=== PATIENT | female | born 1955 | race African-American/Black ===

== ENCOUNTER 2019-03-29 00:15 | Inpatient (IN) | payer OTHER ==
[~2019-03-29] VITALS: Ht 170.2 cm; Wt 115.7 kg
[2019-03-29] VITALS (57 sets, daily range): BP systolic 105–163; BP diastolic 47–80
[2019-03-29] MEDS ORDERED: NORVASC 2.5 MG2.5 M1 PO (00:56)
[2019-03-29] MEDS ORDERED: ASA81BEC PO (00:57)
[2019-03-29] MEDS ORDERED: CARVEDILOL25 MG PO (00:58)
[2019-03-29] MEDS ORDERED: LIPITOR10 MG PO (00:58)
[2019-03-29] MEDS ORDERED: CHILDREN'S ZYRT10 M1 PO (00:59)
[2019-03-29] MEDS ORDERED: CLONAZEPAM 0.50.5 M1 PO ×2 (00:59→01:00)
[2019-03-29 01:01] LABS: BE(vivo) 6.5 mmol/L (-2 to +3); HCO3 30.5 mmol/L (22.0-26.0); PCO2 41.3 mmHg (35.0-45.0); PO2 61.3 mmHg (80.0-100.0); pH 7.486 (7.360-7.450); sO2 93.1 % (92.0-98.0)
[2019-03-29] MEDS ORDERED: DEMECLOCYCLINE300 MG PO (01:01)
[2019-03-29] MEDS ORDERED: DIVALPROEX SOD500 MG PO (01:02)
[2019-03-29 01:50] LABS: HEMATOCRIT 27.6 % (37.0-47.0); HEMOGLOBIN 9.2 gm/dL (12.0-15.0); MCH 26.7 pg (26.0-34.0); MCHC 33.4 g/dL (28.0-37.0); MCV 79.8 fL (80.0-100.0); PLATELET COUNT 347 thou/uL (150-400); RBC 3.46 mil/uL (4.20-5.00); RDW 15.9 % (10.5-14.5); WBC 8.6 thou/uL (4.0-11.0)
[2019-03-29 02:07] LABS: ALBUMIN 2.7 g/dL (3.4-5.0); ANION GAP 6 mmol/L (7-16); BUN 18 mg/dL (7-18); CALCIUM 8.8 mg/dL (8.5-10.1); CHLORIDE 77 mmol/L (98-107); CO2 29 mmol/L (21-32); CREATININE 1.6 mg/dL (0.6-1.0); DIRECT BILIRUBIN 0.2 mg/dL (<0.1-0.2); GLUCOSE 148 mg/dL (74-106); POTASSIUM 4.2 mmol/L (3.5-5.1); SGOT 67 U/L (15-37); SGPT 50 U/L (30-65); TOTAL BILIRUBIN 0.7 mg/dL (<0.1-1.0); TOTAL PROTEIN 7.3 g/dL (6.4-8.2); TROPONIN-I <0.06 ng/mL (<0.06)
[2019-03-29 02:12] LABS: SODIUM 112 mmol/L (136-145)
[2019-03-29 02:17] LABS: AMP/METHAMP Negative (Negative); BARBITURATES Negative (Negative); BENZODIAZEPINES Negative (Negative); COCAINE Negative (Negative); METHADONE Negative (Negative); OPIATES Negative (Negative); PCP Negative (Negative)
[2019-03-29 02:18] LABS: URINE BILIRUBIN NEGATIVE (Negative); URINE BLOOD NEGATIVE (Negative); URINE CLARITY CLEAR; URINE COLOR YELLOW; URINE GLUCOSE-RANDOM* NEGATIVE (Negative); URINE KETONES TRACE (Negative); URINE LEUKOCYTES-REFLEX NEGATIVE (Negative); URINE NITRITE-REFLEX NEGATIVE (Negative); URINE PROTEIN (DIPSTICK) 1+ (Negative); URINE SPECIFIC GRAVITY >= 1.030 (1.005-1.035); URINE UROBILINOGEN 0.2 E.U./dl (0.2-1.0)
[2019-03-29 02:27] LABS: ABSOLUTE NEUTROPHILS 6.8 thou/uL (1.4-8.2)
[2019-03-29 02:28] LABS: LARGE PLATELETS FEW; MICROCYTES 1+; PLATELET ESTIMATE NORMAL; POIKILOCYTOSIS 1+; POLYCHROMASIA 1+
[2019-03-29 02:29] LABS: ANISOCYTOSIS 1+
[2019-03-29 02:34] LABS: BACTERIA-REFLEX 1-9 Few /HPF (None Seen); HYALINE CASTS 0-3 Few /LPF (None Seen); MUCUS 0-3 Light strn/LPF (None Seen); SQUAMOUS 0-3 Few /LPF (0-3); URIC ACID CRYSTALS 4-10 Moderate /LPF (None Seen); URINE RBC 0-2 Rare /HPF (0-2); URINE WBC-REFLEX 0-5 Rare /HPF (0-5)
[2019-03-29] MEDS ORDERED: DULCOLAX STOOL100 M1 PO (03:19)
[2019-03-29] MEDS ORDERED: HYDROCHLOROTHIA25 M2 PO (03:20)
[2019-03-29] MEDS ORDERED: HYDRALAZINE HC100 MG PO (03:20)
[2019-03-29] MEDS ORDERED: LEVEMIR FL100 UNIT/2 SUBQ (03:21)
[2019-03-29] MEDS ORDERED: LOXAPINE25 MG PO (03:22)
[2019-03-29] MEDS ORDERED: MAGNESIUM250 M1 PO ×2 (03:23)
[2019-03-29] MEDS ORDERED: METFORMIN HCL500 M3 PO (03:24)
[2019-03-29] MEDS ORDERED: NOVOLOG100 UNIT/M SUBQ (03:25)
[2019-03-29] MEDS ORDERED: OXYBUTYNIN 5 MG5 M2 PO (03:25)
--- NOTE | 2019-03-29 05:00 | NUR ---
Pt arrived ICu around 0500. She is being admit for Hyponatremia. She appears sleeping, responses to verbal commands. Denies of any pain upon arrival. NSR on monitor, BP stable. Hx of siezure in the past, padded all rail. Seizure precaution inplaced. Assessment completed. Hx obtained from pt's NH record and her mother. Care plans are initiated, continue working toward goals.
[2019-03-29 06:11] LABS: URINE CREATININE-RANDOM* 111.5 mg/dL
[2019-03-29 06:33] LABS: CALCIUM 7.9 mg/dL (8.5-10.1); CREATININE 1.3 mg/dL (0.6-1.0); MAGNESIUM 1.3 mg/dL (1.8-2.4); POTASSIUM 3.7 mmol/L (3.5-5.1)
--- NOTE | 2019-03-29 15:55 | NUR ---
CM ASSESSMENT: CASE OPENED FOR DC PLANNING. CLINICAL INFO REVIEWED. PT ADMITS WITH A/C HYPONATREMIA AND DELIRIUM. PT RESIDES IN LTC AT [facility] SINCE 10/2016. HX SCHIZOPHRENIA, SEIZURES, DM 2. DISCUSSED WITH ROLANDO IN ADMISSIONS AT FACILITY. PT IS INDEPENDENT WITH MOBILITY. CURENTLY ON O2. PT/OT/ST FOR COG EVAL PENDIING. MESSAGE LEFT FOR PT'S DTR FABIO. REQUESTED DC DIP FILLER FAX H&P TO FACILITY. ROLANDO FROM [place] INDICATES SHE IS PLANNING TO COME SEE PT 03/30/19.
--- NOTE | 2019-03-29 16:28 | NUR ---
PT RESIDES AT [facility] FAXED H/P TO FACILITY SPOKE WITH ROLANDO IN ADM SHE RECEIVED UPDATE. DP TO FOLLOW.
--- NOTE | 2019-03-29 17:09 | EKG ---
[address] [place] [address] ELECTROCARDIOGRAM REPORT Name: ERIC DUKE Room #: 243-P ADM IN M.R.#: [id number] Admission: 03/29/19 Attend Phys: Jonathan Clifford MD Discharge: Date of : 57 Report #: [id number] THIS REPORT FOR: //name// [facility] ED Test Date: 2019-03-29 Test Time: 00:22:45 Pat Name: ERIC DUKE Department: Room: 243 Gender: F Occupational Therapist Assistants: DARIANA : [id number] Requested By: Garry Cheung Order Number: [id number] MD: Maicol Guevara Measurements Intervals [place] Rate: 96 P: -14 VT: 169 QRS: -26 QRSD: 79 T: 44 QT: 335 QTc: 424 Interpretive Statements Sinus rhythm Consider left atrial enlargement Inferior infarct, old Anterior infarct, old No previous ECG available for comparison Electronically Signed On 03-29-2019 17:08:23 UTILITY SPECIALIST by Maicol Guevara [email or web address] <ELECTRONICALLY SIGNED> By: Maicol Guevara MD, [facility] 03/29/19 1708 D: 01/21 Maicol Guevara MD, FACC /EPI
--- NOTE | 2019-03-29 18:45 | NUR ---
Assumed care at 0700. PT appears asleep and is difficult to rouse. PT is oriented to person, place, and time. However she cannot remember why she was admitted and does not remember earlier conversations. PT worked wiht therapy this afternoon adn appeared more alert afterwards. PT appears anxious and frequently asks staff why she is here and what the treatment plan is. PT has been educated several times but reinforcement is required. PT continued to use a whistle that was around ehr neck on a string several times in addition to rpessing ehr call light. PT was educated that it was not sfafe wrapped around her neck and was not allowed in [facility] ICU environment as [facility] noise is disruptive to other patients and family members. PT was tearful and finally removed her whistle after much education from nursing staff. It was palced in the bag with her other belongings. Dr. Clifford ordered PT to be transferred out of ICU to a medsur floor with tele. boots and shoes supervisor and ICU charge nurse are aware. PT's mother and daughter were made aware that she could possibly move to another floor. They appeared agreeable. Fall precautions in place. Call light is within reach. Nurse will continue to monitor.
[2019-03-30] VITALS: BP 135/64
[2019-03-30 04:00] VITALS: BP 148/70
--- NOTE | 2019-03-30 04:24 | NUR ---
No events over night. Pt states left shoulder pain significantly better after receiving Tylenol. Monitor remains sinus rhythm - sinus tach, rate 95-108. O2 sat 96-99% on 2 L nasal canula. Intermittently restless and fixated on small things like getting teeth brushed.
[2019-03-30 05:14] LABS: HEMATOCRIT 29.2 % (37.0-47.0); HEMOGLOBIN 9.8 gm/dL (12.0-15.0); MCH 26.9 pg (26.0-34.0); MCHC 33.5 g/dL (28.0-37.0); MCV 80.4 fL (80.0-100.0); RBC 3.64 mil/uL (4.20-5.00); RDW 15.9 % (10.5-14.5)
[2019-03-30 05:29] LABS: ALBUMIN 2.4 g/dL (3.4-5.0); CALCIUM 9.4 mg/dL (8.5-10.1); PHOSPHORUS 3.2 mg/dL (2.5-4.9); POTASSIUM 3.8 mmol/L (3.5-5.1)
[2019-03-30 08:00] VITALS: BP 158/90
--- NOTE | 2019-03-30 08:06 | NUR ---
Assumed care at 0700. PT has orders to transfer to CCU bed 218. PT is alert and oriented x4. She was assisted to the commode with 2 RN ast. Fall precautions in place. Report was called to Nia CHRISTIANSEN on CCU at 0800. She verbalized understanding. The PT's daughter, Tiffany WELDON, was notified of the new room number and that the PT will be transferred. She was agreeable. PT was notified of transfer and appears agreeable however further education is encouraged. PT will leave unit via wheelchair and nurse will transport.
--- NOTE | 2019-03-30 12:00 | NUR ---
ASSESSMENTS AND INTERVENTIONS DOCCUMENTED. PATIENT ARRIVED TO THE UNIT AROUND 0825. PATIENT SITTING IN CHAIR. PATIENT WORKING WITH PT/ OT TOLERATING IT WELL. ORDERS GIVEN PER DR. MALDONADO TO GET MEDICAL RECORDS FROM NEPHROLOGY AT [facility]. REQUEST SENT. RECORDS PENDING PATIENT REACHING GOALS EVIDENCE BY BEING TRANSFERRED OUT OF ICU.
--- NOTE | 2019-03-30 12:21 | NUR ---
Pt transfered out of ICU to CCU today. [place] updated. No weekend dc anticipated. Pt continues with low sodium. Will reassess for dc back to ltc [facility] the [facility] on Tuesday.
[2019-03-30 16:00] VITALS: BP 179/92
[2019-03-30 20:30] VITALS: BP 185/82
[2019-03-31] VITALS (9 sets, daily range): BP systolic 146–183; BP diastolic 68–99
--- NOTE | 2019-03-31 03:24 | NUR ---
ASSUMED CARE DAY SHIFT FROM DAY SHIFT PT LYING SIDWAYS IN BED WITH ASSIST OF 2 PT PLACED INSEMI TRAVIS POSITION , PT CALM COOPERATIVE SISTER AT BEDSIDE. SEIZURE PAD PLACED ON BED. ASSESSMENT COMPLETED CARDIAC MONTOR SHOWS NSR 107 WITH OCC PVC. PO ABLE TO TAKE PO MEDICATION WITH APPLE SAUCE. ESTRADA WITH CLEAR EVELIA URINE. . PT RESTED WELL THROUGHOUT HOURLY ROUNDS NO C/O SHOULDER PAIN THIS SHIFT, WILL CONTINUE CURRENT POC.
--- NOTE | 2019-03-31 04:18 | NUR ---
BP 172/90 [facility] NOTIFED NO ORDERS RECIEVED, MEDICATION PRESCRIBED.
[2019-03-31 04:49] LABS: ABSOLUTE RETIC COUNT 0.0581 10^6/uL; OBSERVED RETIC COUNT 1.61 % (0.6-2.6)
[2019-03-31 05:23] LABS: ALBUMIN 2.1 g/dL (3.4-5.0); CALCIUM 9.4 mg/dL (8.5-10.1); CREATININE 1.3 mg/dL (0.6-1.0); PHOSPHORUS 3.6 mg/dL (2.5-4.9); POTASSIUM 3.8 mmol/L (3.5-5.1)
[2019-03-31 05:40] LABS: VALPROIC ACID (DEPAKENE)* 60 ug/mL (50-100)
[2019-03-31 05:51] LABS: % SATURATION 7 % (20-39); IRON 13 ug/dL (50-170); TIBC 189 ug/dL (250-450)
[2019-03-31 06:06] LABS: FERRITIN 268 ng/mL (8-252)
--- NOTE | 2019-03-31 18:44 | NUR ---
RECEIVED PT'S CARE AROUND 0710; PT. ON BED; RESTING WITH EYES CLOSED; EQUAL CHEST RISING NOTICED; DURING ASSESSMENT ALERT TO PERSON,PLACE, SITUATION & DATE; C/O L. SIDE ARM PAIN; SCHEDULED MEDICATION GIVEN; EDUCATED ABOUT FALL PREVENTIONS; ST. UNDERSTANDING; ST. HAVING BM LAST THRUSDAY; ST. BEING "HARD"; PHYSICIAN NOTIFIED DURING ROUNDING; ORDERS ON PLACE; PT. REFUSED SUPPOSITORY AND MIRALAX; ST. TAKING STOOL SOFTNER NOT MIRALAX; EDUCATED ABOUT IT; REFUSED IT; PER NEPHROLOGY OK TO D/C SEAN; SEAN D/C AT 1430; PT. ABLE TO VOID TWICE; INCONTINENT; PT. UPSET BECAUSE PAIN MEDICATION FOR HER ARM WAS NOT GIVEN EARLIER; EDUCATED ABOUT SCHEDULED MEDICATION AND PRN MEDICATION; EDUCATED ABOUT PRN EDUCATED CAN BE REQUESTED Q4H; PT. UPSET BECAUSE PULL UPS ARE NOT PROVIDE; EDUCATED ABOUT IT MIGHT CAUSE SKIN IRRITATION OVER [place] AREA; MOTHER AT THE BED SIDE AROUND 1830; UPDATE ON PT'S HEALTH; ST. UNDERSTANDING; ASSESSMENT CHARGED; FOLLOWING POC; ST ON THE MONITOR; WILL PASS ON REPORT;
[2019-04-01 03:50] VITALS: BP 181/86
[2019-04-01 05:49] LABS: CALCIUM 9.6 mg/dL (8.5-10.1); CREATININE 1.1 mg/dL (0.6-1.0); POTASSIUM 3.8 mmol/L (3.5-5.1)
--- NOTE | 2019-04-01 06:23 | NUR ---
PT A&O X4 OCC FORGETFUL SOMETIMES VERBALLY IMPULSIVE. C/O LEFT SHOULDER PAIN REFUSED VOLTAREN GEL CREAM AT HS STATED IT DOES NOT WORK. TYLENOL GIVEN. PT ON SEIZURE PRECAUTIONS. INCONT X3 OVERNITE SATURAING BEDDINGS. PUREED NTL. 1500FR. NO STRAWS. ACHS
[2019-04-01 07:20] VITALS: BP 171/81
[2019-04-01 12:00] VITALS: BP 179/86
[2019-04-01] MEDS ORDERED: HYDRALAZINE HC100 MG PO (14:42)
[2019-04-01 17:00] VITALS: BP 164/83
--- NOTE | 2019-04-01 17:58 | NUR ---
RECEIVED PT'S CARE AROUND 0725; PT. ON BED; RESTING WITH EYES CLOSED; EQUAL CHEST RISING NOTICED; DURING ASSESSMENT PT. C/O L. ARM PAIN AT MOVEMENT; SCHEDULED MEDICATION GIVEN; AM MEDICATIONS GIVEN; ST ON THE MONITOR; ELEVATED SBP; SCHEDULE MEDICATION GIVEN; AT NOON SBP ON THE 170s; BS 299; PT. TAKING ON REGULAR BASIS HYDROLIZINE 100 MG TID; ON EMAR HYDROLIZINE 25MG PRN; PHYSCIAN NOTIIED; DURING THE AFTERNOON PHYSICIAN ROUNDING; ORDERS ON PLACE; HYDROLIZINE GIVEN; INSULIN REPLACED; EARLY EVENING HR ON THE 120s; SCHEDULED MEDICATION GIVEN; HR ON THE 100s; ASSESSMENT CHARGED; FOLLOWING POC; WILL PASS ON REPORT;
[2019-04-01 20:21] VITALS: BP 148/73
[2019-04-02 04:10] VITALS: BP 153/66
--- NOTE | 2019-04-02 06:03 | NUR ---
ASSUMED PT CARES AROUND 1920. PT WAS RESTING IN BED WITH FAMILY AT BEDSIDE. PT HAD NO C/O PAIN, SOA, N/V/D. PT VITAL SIGNS STABLE. PT IS AOX4 BUT SOMETIMES FORGETFUL BUT ABLE TO BE REORIENTED. NIGHT MEDICATIONS GIVEN PER EMAR. PT RESTED THRU NIGHT WITH MINIMAL INTERRUPTIONS. PT HAD MODERATE SIZE BM DURING THE AM. WILL CONTINUE TO MONITOR PT TOWARDS POC.
[2019-04-02 06:20] LABS: CALCIUM 9.5 mg/dL (8.5-10.1); CREATININE 1.2 mg/dL (0.6-1.0); POTASSIUM 3.7 mmol/L (3.5-5.1)
[2019-04-02 08:00] VITALS: BP 155/91
--- NOTE | 2019-04-02 11:43 | NUR ---
PT DISCHARGING TODAY BACK TO [facility] FOR SKILLED STAY FAXED DC ORDERS/FACILITY SPOKE WITH GUILLERMO SHE RECEIVED DC ORDERS AND ARRANGED TRANSPORT BY [facility]AN AT 1300 TODAY. NOTIFIED PT'S DTR IN LAW (WESLEY) OF DC AND TIME OF TRANSPORT. UNIT NOTIFIED AND CHART COPY PER US. RN TO CALL REPORT TO [phone].
[2019-04-02 11:56] VITALS: BP 133/74
--- NOTE | 2019-04-02 12:13 | NUR ---
called, was told the charge nurse would call the staff. Notified them the patient would be sent to them by the transportation between 1:30 to 2pm.
--- NOTE | 2019-04-02 12:31 | NUR ---
PT DISCHARGING TODAY BACK TO [facility] FAXED DC ORDERSS/SUMMARY TO FACILITY SPOKE WITH ROLANDO IN ADM SHE RECEIVED DC ORDERS AND ARRANGED TRANSPORT BY [facility] FOR [phone] TODAY. FAMILY NOTIFIED BY KRISTINA PINO) UNIT NOTIFIED AND CHART COPY PER US. RN TO CALL REPORT TO [phone].
--- NOTE | 2019-04-02 12:31 | NUR ---
Mom called, phone disconnected.
--- NOTE | 2019-04-02 13:32 | NUR ---
Spoke with patient and her mother to alert of dc and timeframe. All in agreement with plan. [facility] van for [phone]. Chart copied and orders faxed.
--- NOTE | 2019-04-02 13:49 | NUR ---
Patient left with the transportation.
--- NOTE | 2019-04-02 13:50 | NUR ---
Patient's mom had been called before the patient left, a voice mail was left.
[2019-04-03 01:07] LABS: GLYCOHEMOGLOBIN (HGB A1C) 9.1 % (4.8-5.6)
--- NOTE | 2019-04-03 08:19 | HC ---
[facility] [place] [address] CONSULTATION Name: ERIC DUKE Room #: 218-P [facility] IN M.R.#: [id number] Admission: 03/29/19 Attend Phys: Jonathan Clifford MD Discharge: 04/02/19 Date of : 57 Report #: [id number] THIS REPORT FOR: //name// CC: Cleve Clifford REASON FOR CONSULTATION: Hyponatremia. REASON FOR PRESENTATION: Brought from her nursing facility for abnormal labs. HISTORY OF PRESENT ILLNESS: This is a 63-year-old with numerous psychiatric issues, hypertension, diabetes mellitus. She presented because of sodium of 112. The patient tells me that she has had issues with the sodium in the past, but this was at another facility. I had reviewed her medical records from her nursing facility and it looks like that she had sodium of 112 as of yesterday. The patient admits to significant water intake. She also reports to me that she sees somebody for her sodium at [facility], who started her on demeclocycline. She also had been maintained on hydrochlorothiazide. She feels thirsty all the time. She was unable to quantify for me the amount of the water she drinks a day. Her urine specific gravity on her presentation was greater than 1.030. Urine sodium was low at 17. Osmolarity studies are pending. PAST MEDICAL HISTORY: 1. Hypertension, maintained on hydrochlorothiazide and Amlodipine. 2. Diabetes mellitus. 3. Schizophrenia, maintained on many psychotropic medications. 4. Chronic hyponatremia. 5. Seizure disorder. 6. Hyperlipidemia. MEDICATIONS: 1. Amlodipine. 2. Carvedilol. 3. Demeclocycline. 4. Hydrochlorothiazide. 5. Magnesium. 6. Metformin. ALLERGIES: CEPHALOSPORIN. REVIEW OF SYSTEMS: GENERAL: Significant for weakness and lethargy. CARDIOVASCULAR: No chest pain or palpitation. PULMONARY: No cough or hemoptysis. GASTROINTESTINAL: No nausea or vomiting. GENITOURINARY: No frequency. No urgency. NEUROLOGICAL: Significant for occasional headache, but no dizziness. [facility] [address] [place] [address] CONSULTATION Name: ERIC DUKE Room #: 218-P [facility] IN .R.#: [id number] Admission: 03/29/19 Attend Phys: Jonathan Clifford MD Discharge: 04/02/19 Date of : 57 Report #: [id number] PHYSICAL EXAMINATION: GENERAL: She is alert, oriented. VITAL SIGNS: Blood pressure is 136/63. HEAD AND NECK: No jugular venous distention. CHEST: Decreased air entry bilaterally. CARDIOVASCULAR: Regular with no rub detected. ABDOMEN: Soft, nontender. EXTREMITIES: Lower extremities, no edema. LABORATORY DATA: Reviewed. Hemoglobin is 9.2. Sodium is up from 112-116 over the last 4 hours. Potassium is 3.7, BUN is 19. Magnesium is 1.3. IMPRESSION AND PLAN: Acute hyponatremia. This is probably multifactorial. The patient is known to have significant hyponatremia in the past and she was maintained on demeclocycline and salt tablet. She is also maintained on hydrochlorothiazide. I suspect that this is mainly due to hydrochlorothiazide and significant water intake. Osmolarity studies are pending. What might be complicating her issues is the fact that she is on multiple psychotropic medications. 1. We will start the appropriate investigation for her hyponatremia. 2. Hold hydrochlorothiazide. 3. Hold demeclocycline. 4. Place on fluid restrictions for now. 5. Her psychotropic medications are complicating the management of her hyponatremia and I am assuming she was started on demeclocycline because of that. 6. Slow correction of the sodium. The patient has ____ up by 4 mEq so far and I will discontinue her saline at this point. 7. Serial serum sodium. 8. We will continue to follow. <ELECTRONICALLY SIGNED> By: Leon Schaffer MD 04/03/19 0819 0927 Leon Schaffer MD /nt
== END 2019-04-02 14:09 | DRG 643 ==
LOC: ER 00:15 → ICU 02:31 → EROBS 02:31 → ICU 04:27 → 2N 03-30 09:45
PROVIDERS: Emergency Medicine; Hospitalist; Internal Medicine Nephrology; Nurse Practitioner Family; ADMIT Internal Medicine
DX: E22.2 Syndrome of inappropriate secretion of antidiuretic hormone (principal); E43 Unspecified severe protein-calorie malnutrition; G93.41 Metabolic encephalopathy; N17.9 Acute kidney failure, unspecified; F20.0 Paranoid schizophrenia; K59.00 Constipation, unspecified; E11.9 Type 2 diabetes mellitus without complications; G40.909 Epilepsy, unspecified, not intractable, without status epilepticus; E78.5 Hyperlipidemia, unspecified; F41.9 Anxiety disorder, unspecified; I11.9 Hypertensive heart disease without heart failure; E87.70 Fluid overload, unspecified; D64.9 Anemia, unspecified; E83.42 Hypomagnesemia; M19.012 Primary osteoarthritis, left shoulder; Z68.39 Body mass index [BMI] 39.0-39.9, adult; Z79.2 Long term (current) use of antibiotics; Z79.82 Long term (current) use of aspirin; Z79.84 Long term (current) use of oral hypoglycemic drugs; Z79.899 Other long term (current) drug therapy; Z88.1 Allergy status to other antibiotic agents; Z87.440 Personal history of urinary (tract) infections; Z86.73 Personal history of transient ischemic attack (TIA), and cerebral infarction without residual deficits; R63.1 Polydipsia; Z91.19 Patient's noncompliance with other medical treatment and regimen
CPT/HCPCS: 10078; 10081; 10203